=== PATIENT | male | born 1995 | race Two or more races ===

== ENCOUNTER 2017-12-16 18:46 | Emergency (ER) | payer SELFPAY ==
[~2017-12-16] VITALS: Ht 172.7 cm; Wt 89.5 kg
[2017-12-16 21:41] VITALS: BP 142/88
== END 2017-12-16 21:42 | disposition home or self-care (01) ==
LOC: EME 18:46
DX: S01.112A Laceration without foreign body of left eyelid and periocular area, initial encounter (principal); W01.198A Fall on same level from slipping, tripping and stumbling with subsequent striking against other object, initial encounter; Y93.01 Activity, walking, marching and hiking; Z23 Encounter for immunization
CPT/HCPCS: 99281; 99284

== ENCOUNTER 2017-12-21 20:23 | Emergency (ER) | payer SELFPAY ==
[~2017-12-21] VITALS: Ht 172.7 cm; Wt 91.0 kg
[2017-12-21] MEDS ORDERED: VIBRAMYCIN100 MG PO (22:11)
[2017-12-21 22:26] VITALS: BP 137/85
== END 2017-12-21 22:27 | disposition home or self-care (01) ==
LOC: EME 20:23
DX: T81.4XXA Infection following a procedure, initial encounter (principal); S01.112D Laceration without foreign body of left eyelid and periocular area, subsequent encounter
CPT/HCPCS: 87070; 87075; 87205; 99281; 99284